=== PATIENT | female | born 1995 | race Caucasian/White ===

== ENCOUNTER 2017-04-15 11:17 | Emergency (ER) | payer MEDICAID, OTHER ==
[~2017-04-15] VITALS: Ht 167.6 cm; Wt 209.0 kg
[2017-04-15] MEDS ORDERED: ONDANSETRON HCL 4MG/2ML VIAL IV STA (12:12)
[2017-04-15] MEDS ORDERED: SODIUM CHLORIDE 0.9% 1,000 ML IV ONE (12:12)
[2017-04-15 12:43] LABS: HEMATOCRIT. 37.4 % (36.0-48.0); HEMOGLOBIN. 12.3 g/dL (12.0-16.0); MEAN CORPUSCULAR HEMOGLOBIN 29.5 pg (28.0-32.0); MEAN CORPUSCULAR VOLUME 89.6 fL (81.0-99.0); MEAN PLATELET VOLUME 9.9 fl (7.4-10.4); PLATELET 211 x1000/uL (130-400); RED BLOOD CELL COUNT 4.18 mill/uL (4.2-5.4); RED CELL DISTRIBUTION WIDTH 14.8 % (11.6-14.6)
[2017-04-15] MEDS ORDERED: KETOROLAC 30MG/ML VIAL IV ONE (12:45)
[2017-04-15 12:52] LABS: PROTHROMBIN TIME 10.7 sec (9.4-11.6)
[2017-04-15 12:53] LABS: HCG SCREEN NEGATIVE
[2017-04-15 12:55] LABS: CLARITY URINE SL HAZY (CLEAR); COLOR URINE PALE YELLOW (YELLOW); GLUCOSE URINE NEGATIVE (NEGATIVE); KETONES URINE NEGATIVE (NEGATIVE); LEUKOCYTE ESTERASE URINE 1+ (NEGATIVE); NITRITE URINE NEGATIVE (NEGATIVE); OCCULT BLOOD URINE NEGATIVE (NEGATIVE); PH URINE 6.5 (4.5-8.0); PROTEIN URINE NEGATIVE (NEGATIVE); SPECIFIC GRAVITY URINE 1.004 (1.005-1.030); UROBILINOGEN URINE 0.2 E.U./dL (0.2-1.0)
[2017-04-15 12:58] LABS: CARBON DIOXIDE 28 mEq/L (21-32); CHLORIDE 106 mEq/L (98-107)
[2017-04-15 13:10] LABS: PLATELET ESTIMATE NORMAL
[2017-04-15] MEDS ORDERED: FAMOTIDINE 20MG/2ML VIAL IV STA (13:40)
[2017-04-15 15:42] VITALS: BP 140/68
== END 2017-04-15 15:44 | disposition home or self-care (01) ==
LOC: ER 11:17
DX: K80.20 Calculus of gallbladder without cholecystitis without obstruction (principal)
CPT/HCPCS: 36415; 76700; 80053; 81001; 83690; 84703; 85025; 85610; 96361; 96374; 96375; 99285; J1885; J2405; J3490; J7030; Z7610